=== PATIENT | male | born 1995 | race Two or more races ===

== ENCOUNTER 2019-12-11 15:10 | Emergency (ER) | payer MEDICAID, OTHER ==
[~2019-12-11] VITALS: Ht 182.9 cm; Wt 127.0 kg
[2019-12-11 15:57] LABS: Basophils # (auto) 0.1 10 ^3/uL (0-0.2); Basophils % (auto) 1.1 % (0.0-2.0); Eosinophils # (auto) 0.3 10 ^3/uL (0-0.8); Eosinophils % (auto) 2.9 % (0.0-7.0); Hematocrit 48.7 % (41.0-53.0); Hemoglobin 16.5 g/dL (13.5-17.5); Lymphocytes # (auto) 2.6 10 ^3/uL (0.4-5.4); Lymphocytes % (auto) 27.6 % (10.0-50.0); Mean Corpuscular Hemoglobin 29.7 pg (28.0-32.0); Mean Corpuscular Hgb Conc. 33.9 g/dL (32.0-36.0); Mean Corpuscular Volume 87.6 fL (80.0-100.0); Monocytes # (auto) 0.9 10 ^3/uL (0-1.3); Monocytes % (auto) 9.7 % (0.0-12.0); Neutrophils # (auto) 5.5 10 ^3/uL (1.6-8.6); Neutrophils % (auto) 58.7 % (37.0-80.0); Nucleated Red Blood Cells % 0.1 %; Platelet Count (auto) 248 10^3/uL (140-450); Red Blood Cells 5.56 10^6/uL (4.5-5.90); Red Cell Distribution Width 13.8 % (11.8-14.3); White Blood Cell 9.4 10^3/uL (4.4-10.8)
[2019-12-11 16:13] LABS: Calcium 9.2 mg/dL (8.5-10.1); Potassium 3.8 mmol/L (3.5-5.1)
[2019-12-11 16:16] LABS: BUN/Creatinine Ratio 14.1; Bilirubin, Total 0.7 mg/dL (0.2-1.0); Total Protein 8.3 g/dL (6.4-8.2)
[2019-12-11 17:37] VITALS: BP 148/90
[2019-12-11 18:23] LABS: Urine Bacteria NONE SEEN /hpf (None Seen); Urine Blood Negative /uL (Negative); Urine Mucus FEW (None Seen); Urine Specific Gravity 1.025 (1.001-1.035); Urine WBC <1 /hpf (0 - 3)
== END 2019-12-11 17:39 | disposition home or self-care (01) ==
LOC: ER 15:10
DX: R10.9 Unspecified abdominal pain (principal); K76.0 Fatty (change of) liver, not elsewhere classified; F17.210 Nicotine dependence, cigarettes, uncomplicated
CPT/HCPCS: 36415; 74176; 80053; 81001; 85025

== ENCOUNTER 2019-12-24 14:53 | Emergency (ER) | payer MEDICAID ==
[~2019-12-24] VITALS: Ht 182.9 cm; Wt 127.0 kg
[2019-12-24 19:04] LABS: Basophils # (auto) 0.1 10 ^3/uL (0-0.2); Basophils % (auto) 0.4 % (0.0-2.0); Eosinophils # (auto) 0 10 ^3/uL (0-0.8); Hematocrit 47.5 % (41.0-53.0); Hemoglobin 16.7 g/dL (13.5-17.5); Mean Corpuscular Hemoglobin 30.7 pg (28.0-32.0); Mean Corpuscular Hgb Conc. 35.2 g/dL (32.0-36.0); Mean Corpuscular Volume 87.3 fL (80.0-100.0); Monocytes # (auto) 1.1 10 ^3/uL (0-1.3); Monocytes % (auto) 7.8 % (0.0-12.0); Neutrophils % (auto) 77.8 % (37.0-80.0); Nucleated Red Blood Cells % 0.2 %; Platelet Count (auto) 283 10^3/uL (140-450); Red Blood Cells 5.45 10^6/uL (4.5-5.90); Red Cell Distribution Width 13.6 % (11.8-14.3); White Blood Cell 14.1 10^3/uL (4.4-10.8)
[2019-12-24 19:14] LABS: INR 1.08 (0.9-1.15); Partial Thromboplastin Time 29.1 sec (23.0-31.2)
[2019-12-24 19:16] LABS: Albumin 4.8 g/dL (3.4-5.0); Calcium 9.6 mg/dL (8.5-10.1); Potassium 3.5 mmol/L (3.5-5.1)
[2019-12-24 19:17] VITALS: BP 165/95
[2019-12-24 19:22] LABS: BUN/Creatinine Ratio 10.1; Bilirubin, Total 0.9 mg/dL (0.2-1.0)
== END 2019-12-24 19:50 | disposition short-term general hospital (02) ==
LOC: ER 14:53
DX: S06.6X0A Traumatic subarachnoid hemorrhage without loss of consciousness, initial encounter (principal); S02.82XA Fracture of other specified skull and facial bones, left side, initial encounter for closed fracture; F17.210 Nicotine dependence, cigarettes, uncomplicated; X58.XXXA Exposure to other specified factors, initial encounter; Y93.39 Activity, other involving climbing, rappelling and jumping off; Y92.89 Other specified places as the place of occurrence of the external cause; Y99.8 Other external cause status
CPT/HCPCS: 36415; 70450; 73140; 80053; 85025; 85610; 85730; 99285; J1953; J7060

== ENCOUNTER 2020-01-23 10:45 | Emergency (ER) | payer MEDICAID ==
[~2020-01-23] VITALS: Ht 182.9 cm; Wt 131.5 kg
[2020-01-23 10:55] VITALS: BP 135/88
== END 2020-01-23 12:04 | disposition home or self-care (01) ==
LOC: ER 10:45
DX: S01.312D Laceration without foreign body of left ear, subsequent encounter (principal); F17.210 Nicotine dependence, cigarettes, uncomplicated; F10.20 Alcohol dependence, uncomplicated; Z88.5 Allergy status to narcotic agent; Y90.9 Presence of alcohol in blood, level not specified; X58.XXXD Exposure to other specified factors, subsequent encounter

== ENCOUNTER 2020-02-12 20:20 | Emergency (ER) | payer MEDICAID ==
[~2020-02-12] VITALS: Ht 170.2 cm; Wt 127.0 kg
[2020-02-12] MEDS ORDERED: diphenhdrAMINE HCL 50 MG/1 ML VL IM ONE (20:30)
[2020-02-12] MEDS ORDERED: LORazepam 2MG/ML-1ML VIAL IM ONE (20:30)
[2020-02-12] MEDS ORDERED: THIAMINE INJ 100 MG in SODIUM CHLORIDE 0.9% 1,000 ML IV ONE (20:30)
[2020-02-12] MEDS ORDERED: SODIUM CHLORIDE 0.9% 1,000 ML IV ONE ×2 (20:30→23:30)
[2020-02-12] MEDS ORDERED: HALOPERIDOL LACTATE 5 MG/ML INJ VIAL IM ONE (20:30)
[2020-02-12] MEDS ORDERED: LORazepam 2MG/ML-1ML VIAL IV ONE (21:00)
[2020-02-12 22:28] LABS: Basophils # (auto) 0 10 ^3/uL (0-0.2); Basophils % (auto) 0.3 % (0.0-2.0); Eosinophils # (auto) 0 10 ^3/uL (0-0.8); Hematocrit 43.5 % (41.0-53.0); Hemoglobin 14.5 g/dL (13.5-17.5); Lymphocytes # (auto) 1.4 10 ^3/uL (0.4-5.4); Lymphocytes % (auto) 10.7 % (10.0-50.0); Mean Corpuscular Hemoglobin 29.7 pg (28.0-32.0); Mean Corpuscular Hgb Conc. 33.4 g/dL (32.0-36.0); Mean Corpuscular Volume 89.1 fL (80.0-100.0); Monocytes # (auto) 0.7 10 ^3/uL (0-1.3); Monocytes % (auto) 5.5 % (0.0-12.0); Neutrophils # (auto) 10.9 10 ^3/uL (1.6-8.6); Neutrophils % (auto) 83.5 % (37.0-80.0); Nucleated Red Blood Cells % 0.1 %; Platelet Count (auto) 125 10^3/uL (140-450); Red Blood Cells 4.88 10^6/uL (4.5-5.90); White Blood Cell 13.1 10^3/uL (4.4-10.8)
[2020-02-12 22:53] LABS: Salicylate < 1.7 mg/dL (2.8-20.0)
[2020-02-12 22:53] LABS: Albumin 4.4 g/dL (3.4-5.0); BUN/Creatinine Ratio 9.2; Bilirubin, Total 0.4 mg/dL (0.2-1.0); Calcium 9.3 mg/dL (8.5-10.1); Potassium 3.2 mmol/L (3.5-5.1); Total Protein 8.8 g/dL (6.4-8.2)
[2020-02-12 23:01] LABS: Acetaminophen < 2.0 ug/mL (10-30)
[2020-02-12 23:16] LABS: Urine Bacteria FEW /hpf (None Seen); Urine Blood Negative /uL (Negative); Urine Specific Gravity 1.006 (1.001-1.035); Urine WBC 1 /hpf (0 - 3)
[2020-02-12 23:35] LABS: Amphetamine Screen, Urine NEGATIVE (NEGATIVE); Barbiturate Scree,Urine NEGATIVE (NEGATIVE); Benzodiazephine Screen, Urine NEGATIVE (NEGATIVE); Cannabinoid Screen, Urine POSITIVE (NEGATIVE); Cocaine Screen, Urine NEGATIVE (NEGATIVE)
[2020-02-12 23:42] LABS: Opiate Scree,Urine NEGATIVE (NEGATIVE); Phencyclidine Screen, Urine NEGATIVE (NEGATIVE)
[2020-02-13] MEDS ORDERED: THIAMINE 100mg/ml INJ (200mg/2ml VIAL) ONE (00:29)
[2020-02-13 03:33] VITALS: BP 131/77
== END 2020-02-13 03:31 | disposition home or self-care (01) ==
LOC: EDBD 20:20 → ER 20:23
DX: F10.129 Alcohol abuse with intoxication, unspecified (principal); F19.10 Other psychoactive substance abuse, uncomplicated; F11.10 Opioid abuse, uncomplicated; F41.9 Anxiety disorder, unspecified; J45.909 Unspecified asthma, uncomplicated; Z88.5 Allergy status to narcotic agent
CPT/HCPCS: 36415; 80053; 80307; 80320; 80329; 81001; 85025; 96361; 96365; 96372; 96375; 99284; J1200; J1630; J2060; J3411; J7030